=== PATIENT | female | born 1985 | race Caucasian/White ===

== ENCOUNTER → 2016-12-24 | Outpatient (CLI) | payer BC ==
[~2016-12-24] MED LIST: ATEN25TA PO; CLON0.1T PO; LITH450T2 PO; LURA60TA2 PO; MEDR400V IM; MULT1TAB69 PO; PRAZ2CAP2 PO; QUET50TA PO; VORT5TAB PO
== END ==
LOC: LAB 07:27
PROVIDERS: ATTEND Registered Nurse Psychiatric/Mental Health
DX: Z79.899 Other long term (current) drug therapy (principal)
CPT/HCPCS: 36415; 80178